=== PATIENT | male | born 1975 | race Two or more races ===

== ENCOUNTER 2017-08-02 10:15 | Emergency (ER) | payer MEDICAID ==
[2017-08-02 10:30] VITALS: BP 134/74; PULSE 67; RESP 17; TEMP 97.9; O2SAT 97
[2017-08-02 11:19] LABS: ABSOLUTE IMMATURE GRANULOCYTES 0.12 10^3/uL (0.00-0.10); ADD DIFF? NO; ADD MORPH? NO; ADD SCAN? NO; ATYPICAL LYMPHOCYTE FLAG 20 (0-99); FRAGMENT RBC FLAG 0 (0-99); HEMATOCRIT 47.7 % (40.0-51.0); HEMOGLOBIN 16.4 g/dL (13.7-17.5); LEFT SHIFT FLG 10 (0-99); LIPEMIA HEMOLYSIS FLAG 90 (0-99); MEAN CELL HEMOGLOBIN 30.5 pg (27.9-34.1); MEAN CELL HEMOGLOBIN CONCENTR. 34.4 g/dL (32.4-36.7); MEAN CELL VOLUME 88.8 fL (81.5-99.8); MEAN PLATELET VOLUME 8.6 fL (8.7-11.7); PLATELET CLUMPS FLAG 0 (0-99); PLATELET COUNT 289 10^3/uL (150-400); RED BLOOD CELL COUNT 5.37 10^6/uL (4.40-6.38); RED CELL DISTRIBUTION WIDTH 12.3 % (11.5-15.2)
[2017-08-02 11:30] LABS: ANION GAP 14 mEq/L (8-16); CALCIUM 9.5 mg/dL (8.5-10.4); CARBON DIOXIDE 22 mEq/l (22-31); CHLORIDE 105 mEq/L (97-110); CREATININE 0.8 mg/dL (0.7-1.3); GLOMERULAR FILTRATION RATE > 60; GLUCOSE 93 mg/dL (70-100); SODIUM 141 mEq/L (134-144)
[2017-08-02] MEDS ORDERED: KETOROLAC 30 MG/1 ML SDV IVP ONE (11:33)
[2017-08-02] MEDS ORDERED: NS 1,000 ML IV ONE (11:33)
--- NOTE | 2017-08-02 12:40 | EDPHY ---
H & P Smoking Status: Current every day smoker Time Seen by Provider: 08/02/17 10:32 HPI/ROS: CHIEF COMPLAINT: Abdominal pain, history of diverticulitis HISTORY OF PRESENT ILLNESS: 42-year-old male presents to the emergency department by private vehicle complaining of ongoing left lower quadrant abdominal pain. The patient was seen at [facility] in [place] last week and was told that he has diverticulitis. The patient states "this is my 14th flare-up of diverticulitis ". He is apparently scheduled to have a partial colon resection by his doctor in [place]. The patient reports no new trauma. No fevers or chills. He states that he has been taking his antibiotics as prescribed including ciprofloxacin and Flagyl. No vomiting although feels nauseous. No diarrhea. No blood in his stool. No back pain. No urinary symptoms. No chest pain or difficulty breathing. Patient is requesting pain medication. REVIEW OF SYSTEMS: Constitutional: No fever, no chills. Eyes: No double or blurry vision. ENT: No sore throat. Respiratory: No cough, no shortness of breath. Cardiac: No chest pain. Gastrointestinal: Abdominal pain as above. No vomiting or diarrhea Genitourinary: No dysuria. Musculoskeletal: No neck or back pain. Skin: No rashes. Neurological: No headache. (Jalyn James) Past Medical/Surgical History: Bipolar, alcohol abuse, methamphetamine abuse, diverticulitis, diverticulosis ( Jalyn James M) Social History: Homeless from [place] (Jalyn James M) Physical Exam: General Appearance: Alert, no distress. Afebrile. No apparent distress. Eyes: Pupils equal and round. Extraocular motions are all intact. ENT: Mouth: Mucous membranes moist. Respiratory: No wheezing, rhonchi, or rales, lungs are clear to auscultation. Cardiovascular: Regular rate and rhythm. Gastrointestinal: Abdomen is soft, obese. He has mild tenderness with palpation in the left lower quadrant. There is no rebound, guarding or masses noted. No CVA tenderness bilaterally. Neurological: Alert and oriented x 3, cranial nerves II through XII grossly intact Skin: Warm and dry, no rashes. Musculoskeletal: Nontender to palpate along the cervical, thoracic or lumbar spine. Neck is supple. Extremities: Full range of motion and no peripheral edema. Psychiatric: Patient is oriented X 3, there is no agitation. (JailynholleyJalyn M) Constitutional: Initial Vital Signs Temperature (C) 36.6 C 08/02/17 10:27 Heart Rate 67 08/02/17 10:27 Respiratory Rate 17 08/02/17 10:27 Blood Pressure 134/74 H 08/02/17 10:27 O2 Sat (%) 97 08/02/17 10:27 O2 Delivery Mode Room Air Allergies/Adverse Reactions: haloperidol [From Haldol] Allergy (Verified 08/02/17 10:26) lithium Allergy (Verified 08/02/17 10:25) risperidone [From Risperdal] Allergy (Verified 08/02/17 10:25) Home Medications: Medication Instructions Recorded Cipro 08/02/17 Flagyl 08/02/17 oxyCODONE HCL/ACETAMINOPHEN 1 each PO 08/02/17 [Oxycodone-Acetaminophen 5-325] Medical Decision Making ED Course/Re-evaluation: 42-year-old male presents to the emergency department with ongoing abdominal pain. He is requesting pain medication. Laboratory studies were drawn patient has a normal complete blood cell count including white blood cell count is normal at 5.3. His chemistries are all normal. Records were reviewed in [facility] from his visit at [facility]. The patient had a normal white blood cell count of 7.[address] scan which revealed evidence of diverticulosis with possible mild diverticulitis. No perforation. The patient was also seen at [facility] the same day on 05/26/2017 with bipolar, alcoholism and methamphetamine abuse. At this earlier visit, the patient reported no abdominal pain and on examination his records were reviewed and the patient had no abdominal pain with palpation. I explained to the patient that we could offer Toradol for his pain as well as lidocaine but I did not feel comfortable prescribing narcotic medication for the patient. His records were reviewed from his previous visits at the [facility]. I did explain to the patient that I was unable to rule out perforation or abscess. The patient understands that this would require additional CT imaging. The patient states "I have had too many CT scans. "His laboratory studies from May 26 reveal white blood cell count of 7.8 and today they have improved at 5.3. The patient has no fever. Nontoxic appearing. He only has mild tenderness with palpation left lower quadrant. I offered CT imaging of the abdomen and pelvis the patient declined. The patient wanted to leave and be discharged after his Toradol. Patient was given Toradol 30 mg IV as well as IV normal saline. He was given primary care referral as well as GI referral. Patient states that he will go back to [place] to see his general surgeon. Patient was instructed to return if he developed fever, vomiting, worsening pain , change in symptoms, or if he felt worse in any way. (Jalyn James) Differential Diagnosis: Including but not limited to diverticulosis, diverticulitis, bowel obstruction, perforation, substance abuse (Jalyn James) Other Provider: The patient was evaluated and managed by the Physician Cut Out Worker/ Nurse Practitioner. I discussed the patient's presentation and course with the midlevel provider with them and agree with the evaluation. My co-signature indicates that I have reviewed this chart and I agree with the findings and plan of care as documented. I am the secondary supervising physician. (Christina Nelson) - Data Points Laboratory Results: Laboratory Results 08/02/17 10:58 08/02/17 10:58 08/02/17 08/02/17 10:58 10:58 WBC 5.90 10^3/uL 10^3/uL (3.80-9.50) RBC 5.37 10^6/uL 10^6/uL (4.40-6.38) Hgb 16.4 g/dL g/dL (13.7-17.5) Hct 47.7 % % (40.0-51.0) MCV 88.8 fL fL (81.5-99.8) MCH 30.5 pg pg (27.9-34.1) MCHC 34.4 g/dL g/dL (32.4-36.7) RDW 12.3 % % (11.5-15.2) Plt Count 289 10^3/uL 10^3/uL (150-400) MPV 8.6 fL L fL (8.7-11.7) Neut % (Auto) 61.2 % % (39.3-74.2) Lymph % (Auto) 27.3 % % (15.0-45.0) [place] % (Auto) 7.8 % % (4.5-13.0) Eos % (Auto) 1.0 % % (0.6-7.6) Baso % (Auto) 0.7 % % (0.3-1.7) Nucleat RBC Rel Count 0.0 % % (0.0-0.2) Absolute Neuts (auto) 3.61 10^3/uL 10^3/uL (1.70-6.50) Absolute Lymphs (auto) 1.61 10^3/uL 10^3/uL (1.00-3.00) Absolute Monos (auto) 0.46 10^3/uL 10^3/uL (0.30-0.80) Absolute Eos (auto) 0.06 10^3/uL 10^3/uL (0.03-0.40) Absolute Basos (auto) 0.04 10^3/uL 10^3/uL (0.02-0.10) Absolute Nucleated RBC 0.00 10^3/uL 10^3/uL (0-0.01) Immature Gran % 2.0 % H % (0.0-1.1) Immature Gran # 0.12 10^3/uL H 10^3/uL (0.00-0.10) Sodium 141 mEq/L mEq/L (134-144) Potassium 4.0 mEq/L mEq/L (3.5-5.2) Chloride 105 mEq/L mEq/L (97-110) Carbon Dioxide 22 mEq/l mEq/l (22-31) Anion Gap 14 mEq/L mEq/L (8-16) BUN 9 mg/dL mg/dL (7-23) Creatinine 0.8 mg/dL mg/dL (0.7-1.3) Estimated GFR > 60 Glucose 93 mg/dL mg/dL (70-100) Calcium 9.5 mg/dL mg/dL (8.5-10.4) Medications Given: Discontinued Medications Sodium Chloride (Ns) 1,000 mls @ 0 mls/hr IV ONCE ONE PRN Reason: Wide Open Stop: 08/02/17 11:34 Last Admin: 08/02/17 11:43 Dose: 1,000 mls Ketorolac Tromethamine (Toradol) 30 mg IVP EDNOW ONE Stop: 08/02/17 11:34 Last Admin: 08/02/17 11:43 Dose: 30 mg Departure - Departure Disposition: Home, Routine, Self-Care Clinical Impression: Diverticulosis Qualifiers: Diverticulosis site: diverticulosis of large intestine Diverticulosis bleeding : diverticulosis without bleeding Qualified Code(s): K57.30 - Diverticulosis of large intestine without perforation or abscess without bleeding Abdominal pain Qualifiers: Abdominal location: left lower quadrant Qualified Code(s): R10.32 - Left lower quadrant pain Diverticulitis Qualifiers: Diverticulitis site: large intestine Diverticulitis bleeding: without bleeding Diverticulitis complication: unspecified complication status Qualified Code(s): K57.32 - Diverticulitis of large intestine without perforation or abscess without bleeding Condition: Good Instructions: Diverticulitis (ED), Diverticulosis (ED), Diverticulitis Diet (ED ), Abdominal Pain (ED) Additional Instructions: Continue antibiotics as prescribed. Return to the emergency department if you develop fever, rectal bleeding, increasing pain or any other concerns. Referrals: Wilfred Church MD [Medical Doctor] - As per Instructions (Assistant Terminal Manager on-call) Carter Burden MD [Medical Doctor] - As per Instructions (Primary care provider nutrition internship)
== END 2017-08-02 14:17 | disposition home or self-care (01) ==
DX: K57.30 Diverticulosis of large intestine without perforation or abscess without bleeding (principal); K57.32 Diverticulitis of large intestine without perforation or abscess without bleeding; F17.200 Nicotine dependence, unspecified, uncomplicated
CPT/HCPCS: 96374; J1885